=== PATIENT | male | born 1975 | race Caucasian/White ===

== ENCOUNTER 2016-09-30 01:10 | Emergency (ER) | payer OTHER ==
[2016-09-30 01:24] VITALS: BMI 27.0
--- NOTE | 2016-09-30 01:46 | DR.GENAD ---
HPI - PCP Primary Care Physician: dwight navas - Complaint/Symptoms Chief Complaint:: fell on right hip that he had surgery on cannot straighten nub out. right hip has a burning sensation patient has had plates and screws placed about 2 weeks ago Self Treatment fo Chief Complaint: tried to run warm water over it to see if that would help - Source History Provided: Patient - Mode of Arrival Mode of Arrival: Wheelchair - Timing Onset of Chief Complaint: 09/29/16 PMH - PMH Past Medical History: Yes Past Medical History: Anxiety, Depression, Diabetes, Headaches Past Medical History Comment: burger disease Past Surgical History: Yes Surgical History: Ortho Surgery Past Surgical History Comment: right hip surgery,left bka, right hand surgery, left thigh surgery - Family History History of Family Medical Conditions: Yes Family Medical History: Diabetes Mellitus, [place], Heart Failure, Hypertension - Social History Does patient currently use any type of tobacco product: Yes Have you used tobacco products in the last 12 months: Yes Type of Tobacco Use: Cigarettes Does any household member use tobacco: Yes Alcohol Use: None Do you use any recreational Drugs:: No Lives With: Spouse Lives Where: Home - infectious screening In the last 2 months have you had wt loss of >10#?: YES Have you had fever, night sweats or hemotysis?: No Have you traveled outside the country in the last 6 months?: No Isolation: Standard ROS - Review of Systems Constitutional: No Symptoms Reported Eyes: No Symptoms Reported ENTM: No Symptoms Reported Respiratoy: No Symptoms Reported Cardiovascular: No Symptoms Reported Gastrointestinal/Abdominal: No Symptoms Reported Genitourinary: No Symptoms Reported Neurological: No Symptoms Reported Musculoskeletal: No Symptoms Reported Integumentary: See HPI Hematologic/Lymphatic: No Symptoms Reported Endocrine: No Symptoms Reported Psychiatric: No Symptoms Reported All Other Systems: Reviewed and Negative PE - Vital Signs Vitals: Temperature 98.5 F Pulse Rate 90 Respiratory Rate 24 Blood Pressure [Right Arm] 133/65 Blood Pressure 139/76 O2 Sat by Pulse Oximetry 98 - General Limitations: No Limitations General Appearance: Alert, In No Apparent Distress - Head Head Exam: Normal Inspection, Atraumatic - Eyes Eye exam: Normal Appearance, PERRL, EOMI - ENT ENT Exam: Normal Exam External Ear Exam: Normal External Inspection TM/Canal Exam: Bilateral Normal Nose Exam: Normal Nose Exam Mouth Exam: Normal Inspection Throat Exam: Normal Inspection - Neck Neck Exam: Normal Inspection, Full ROM - Chest Chest Inspection: Normal Inspection - Respiratory Respiratory Exam: Normal Lung Sounds Bilat Respiratory Exam: Bilateral Clear to Auscultation - Cardiovascular Cardiovascular Exam: Regular Rate, Normal Rhythm - Abdominal Exam Abdominal Exam: Normal Inspection, Normal Bowel Sounds Abdominal Tenderness: negative: RUQ, RLQ, LUQ, LLQ, Epigastrium, Suprapubic, Diffuse, Mild, Moderate, Severe, Other - Extremities Extremities Exam: Normal Inspection - Back Back Exam: Normal Inspection - Neurologic Neurological Exam: Alert, Oriented X3, CN II-XII Intact - Psychiatric Psychiatric Exam: Normal Affect, Agitated - Skin Skin Exam: Warm, Dry, Intact Course - Reevaluation 1st: Improved ROR - XRAY XRAY Interpreted by: Radiologist (There is an internally fixed intertrochanteric fracture of the right femur. No acute fracture or dislocation identified. Moderate degenerative changes are seen in botgh hips. The bones of the pelvis are intact. Impression:There is an intertrochanteric fracture of the right femur tghat was visualized on September and has since been internally fixed. No acute abnormality.) - Diagnosis Discharge Problem: Contusion of hip, right Qualifiers: Encounter type: initial encounter Qualified Code(s): S70.01XA - Contusion of right hip, initial encounter - Discharge Plan Condition: Stable - Follow ups/Referrals Follow ups/Referrals: LEAH NAVAS [Primary Care Provider] - 3 days - Instructions
[2016-09-30] MEDS ORDERED: DEMEROL INJ IM ONE (01:47)
[2016-09-30] MEDS ORDERED: DEMEROL INJ ONE (02:13)
--- NOTE | 2016-09-30 02:35 | RAD ---
EXAM: Right hip x-ray INDICATION: Hip Pain COMPARISION: No priors for comparison TECHNIQUE: Two views FINDINGS: There is an internally fixed intertrochanteric fracture of the right femur. No acute fracture or dis location identified. Moderate degenerative changes are seen in both hips. The bones of the pelvis ar e intact. IMPRESSION: There is an intertrochanteric fracture of the right femur that was visualized on September 07, 2016 and h as since been internally fixed. No acute abnormality. Reported By:
[2016-09-30 04:35] VITALS: BP 113/61
== END 2016-09-30 04:30 | disposition home or self-care (01) ==
LOC: ER 01:10
DX: S70.01XA Contusion of right hip, initial encounter (principal); W19.XXXA Unspecified fall, initial encounter; Y92.9 Unspecified place or not applicable
CPT/HCPCS: 73501; 96372; 99282; J2175

== ENCOUNTER 2017-05-18 23:37 | Emergency (ER) | payer OTHER ==
[2017-05-18 23:50] VITALS: BP 146/94; BMI 29.2
[2017-05-19] MEDS ORDERED: KEFLEX CAP 500 MG PO ONE ×2 (00:50→01:00)
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
== END 2017-05-19 01:20 | disposition home or self-care (01) ==
LOC: ER 23:43
DX: S70.01XA Contusion of right hip, initial encounter (principal); S70.11XA Contusion of right thigh, initial encounter; L03.115 Cellulitis of right lower limb; W19.XXXA Unspecified fall, initial encounter; Y92.9 Unspecified place or not applicable
CPT/HCPCS: 99282

== ENCOUNTER 2017-10-07 13:36 | Emergency (ER) | payer OTHER ==
[2017-10-07 13:44] VITALS: BMI 31.8
--- NOTE | 2017-10-07 14:06 | DR.GENAD ---
HPI - PCP Primary Care Physician: SUSHILA SNOW - HPI Comment HPI Comment: COMPOUNDED MED TRIPLEMIX FOR ERECTION WAS USE LESS THAN 0.2MG 4 DAYS AGO. PATIENT HAVE SEXUAL DYSFUNCTION. ERECTION IS NOT GOING AWAY. IT IS PAINFULL. - Complaint/Symptoms Chief Complaint Doctors Comments: PRIAPISM Chief Complaint:: PT C/O HAVING AN IRRECTIONS THAT LASTED LONGER THAN 4 DAYS PT C/O INJECTING TRIPLE MIX, ,,BR - Nurses notes reviewed Nurses Notes Review: Yes - Source History Provided: Patient - Mode of Arrival Mode of Arrival: Ambulatory - Timing Onset of Chief Complaint: 10/03/17 Came on: Suddenly - Duration Duration: Constant Duration: Days - Severity Severity: Moderate PMH - PMH Past Medical History: No Past Medical History: Anxiety, COPD, Diabetes Past Surgical History: Yes Surgical History: Ortho Surgery Past Surgical History Comment: BKA, RIGHT, RIGHT HIP WITH RODS AND PINS,, BR - Family History History of Family Medical Conditions: No Family Medical History: Diabetes Mellitus, Hypertension - Social History Does patient currently use any type of tobacco product: No Have you used tobacco products in the last 12 months: No Type of Tobacco Use: None Does any household member use tobacco: No Alcohol Use: None Do you use any recreational Drugs:: No Lives With: Family Lives Where: Home - infectious screening In the last 2 months have you had wt loss of >10#?: NO Have you had fever, night sweats or hemotysis?: No Have you traveled outside the country in the last 6 months?: No Isolation: Standard ROS - Review of Systems Constitutional: No Symptoms Reported Eyes: No Symptoms Reported ENTM: No Symptoms Reported Respiratoy: No Symptoms Reported Cardiovascular: No Symptoms Reported Gastrointestinal/Abdominal: No Symptoms Reported Genitourinary: Other (PRIAPISM) Neurological: No Symptoms Reported Musculoskeletal: No Symptoms Reported Integumentary: No Symptoms Reported Hematologic/Lymphatic: No Symptoms Reported Endocrine: No Symptoms Reported All Other Systems: Reviewed and Negative PE - Vital Signs Vitals: Temperature 98.0 F Pulse Rate [Right Brachial] 96 Pulse Rate 105 Respiratory Rate 20 Blood Pressure [Left Arm] 113/61 Blood Pressure [Right Arm] 136/74 Blood Pressure 154/86 O2 Sat by Pulse Oximetry 99 - General Limitations: No Limitations General Appearance: Alert - Head Head Exam: Normal Inspection - Eyes Eye exam: Normal Appearance - ENT ENT Exam: Normal External Ear Exam External Ear Exam: Normal External Inspection TM/Canal Exam: Bilateral Normal Nose Exam: Normal Nose Exam Mouth Exam: Normal Inspection Throat Exam: Normal Inspection - Neck Neck Exam: Normal Inspection - Chest Chest Inspection: Symmetric Chest Wall Rise - Respiratory Respiratory Exam: Normal Lung Sounds Bilat Respiratory Exam: Bilateral Clear to Auscultation - Cardiovascular Cardiovascular Exam: Regular Rate, Normal Rhythm, Normal Heart Sounds - Abdominal Exam Abdominal Exam: Normal Bowel Sounds, Soft. negative: Tenderness - Extremities Extremities Exam: Other (RBKA. ) - Psychiatric Psychiatric Exam: Anxious - Skin Skin Exam: Normal Color MDM - Differential Diagnosis Differential Diagnosis: PRIAPISM Course - Treatment Treatment: SEE ORDERS. - Education/Counseling Education/Counseling: Patient, Education Educated On: Diagnosis, Needs for Follow Up ROR - Labs Reviewed Laboratory Results Reviewed?: Yes Result Diagrams: 10/07/17 14:36 10/07/17 14:36 Laboratory: WBC 12.5 X10^3/uL (3.6-10.0) H 10/07/17 14:36 RBC 4.81 X10^6/uL (4.7-6.0) 10/07/17 14:36 Hgb 14.9 g/dL (13.5-18.0) 10/07/17 14:36 Hct 41.8 % (42.0-54.0) L 10/07/17 14:36 MCV 86.8 fL (80.0-100.0) 10/07/17 14:36 MCH 30.9 pg (27.0-34.0) 10/07/17 14:36 MCHC 35.6 g/dL (33.0-35.0) H 10/07/17 14:36 RDW 14.1 % (11.6-16.5) 10/07/17 14:36 Plt Count 401 X10^3/uL (150.0-450.0) 10/07/17 14:36 MPV 7.6 fL (7.4-11.0) 10/07/17 14:36 Neut % (Auto) 75.9 % (42.0-75.0) H 10/07/17 14:36 Lymph % (Auto) 14.0 % (21.0-51.0) L 10/07/17 14:36 Bollinger % (Auto) 6.3 % (0.0-13.0) 10/07/17 14:36 Eos % (Auto) 3.1 % (0.9-2.9) H 10/07/17 14:36 Baso % (Auto) 0.7 % (0.2-1.0) 10/07/17 14:36 Neut # (Auto) 9.5 x10^3/uL (2.2-4.8) H 10/07/17 14:36 Lymph # (Auto) 1.7 X10^3/uL (1.3-2.9) 10/07/17 14:36 Bollinger # (Auto) 0.8 x10^3/uL (0.3-0.8) 10/07/17 14:36 Eos # (Auto) 0.4 x10^3/uL (0.0-0.2) H 10/07/17 14:36 Baso # (Auto) 0.1 X10^3/uL (0.0-0.1) 10/07/17 14:36 Absolute Nucleated RBC 0.0 /100WBC 10/07/17 14:36 Sodium 138 mmol/L (136-145) 10/07/17 14:36 Corrected Sodium 143 mmol/L (136-145) 10/07/17 14:36 Potassium 3.7 mmol/L (3.5-5.1) 10/07/17 14:36 Chloride 103 mmol/L (98-107) 10/07/17 14:36 Carbon Dioxide 27.3 mmol/L (21-32) 10/07/17 14:36 BUN 13 mg/dL (7-18) 10/07/17 14:36 Creatinine 0.85 mg/dL (0.70-1.30) 10/07/17 14:36 Est GFR (MDRD) Af Amer > 60 (>60) 10/07/17 14:36 Est GFR (MDRD) Non-Af > 60 (>60) 10/07/17 14:36 Glucose 303 mg/dL (65-99) H 10/07/17 14:36 Calcium 8.3 mg/dL (8.5-10.1) L 10/07/17 14:36 Corrected Calcium TNP 10/07/17 14:36 Total Bilirubin 0.60 mg/dL (0.2-1.0) 10/07/17 14:36 AST 11 Units/L (15-37) L 10/07/17 14:36 ALT 31 Units/L (12-78) 10/07/17 14:36 Alkaline Phosphatase 76 Units/L (46-116) 10/07/17 14:36 Total Protein 7.5 g/dL (6.4-8.2) 10/07/17 14:36 Albumin 4.1 g/dL (3.4-5.0) 10/07/17 14:36 Globulin 3.4 g/dL (2.5-4.5) 10/07/17 14:36 Albumin/Globulin Ratio 1.2 Ratio (1.1-2.1) 10/07/17 14:36 - XRAY XRAY Findings: DISCUSS PATIENT WITH DR. CARDENAS, UROLOGIST FROM [facility]. HE ACCEPTED - Diagnosis Discharge Problem: Priapism - Discharge Plan Disposition: [facility] Condition: Stable - Follow ups/Referrals Follow ups/Referrals: NFD,None [Primary Care Provider] - 3 days - Instructions
[2017-10-07] MEDS ORDERED: ZOFRAN INJ 4 MG VIAL IVP ONE (14:20)
[2017-10-07] MEDS ORDERED: DEMEROL INJ IVP ONE ×2 (14:20→16:20)
[2017-10-07] MEDS ORDERED: NS 1000 ML 1,000 ML ONE ×2 (14:39→16:06)
[2017-10-07] MEDS ORDERED: ZOFRAN INJ 4 MG VIAL ONE (14:39)
[2017-10-07] MEDS ORDERED: DEMEROL INJ ONE ×2 (14:40→16:04)
[2017-10-07 14:43] LABS: BASOPHILS # (AUTO) 0.1 X10^3/uL (0.0-0.1); BASOPHILS % (AUTO) 0.7 % (0.2-1.0); EOSINOPHILS # (AUTO) 0.4 x10^3/uL (0.0-0.2); EOSINOPHILS % (AUTO) 3.1 % (0.9-2.9); HEMATOCRIT 41.8 % (42.0-54.0); HEMOGLOBIN 14.9 g/dL (13.5-18.0); LYMPHOCYTES # (AUTO) 1.7 X10^3/uL (1.3-2.9); MEAN CORPUSCULAR HEMOGLOBIN 30.9 pg (27.0-34.0); MEAN CORPUSCULAR HGB CONC 35.6 g/dL (33.0-35.0); MEAN CORPUSCULAR VOLUME 86.8 fL (80.0-100.0); MEAN PLATELET VOLUME 7.6 fL (7.4-11.0); MONOCYTES # (AUTO) 0.8 x10^3/uL (0.3-0.8); MONOCYTES % (AUTO) 6.3 % (0.0-13.0); NEUTROPHILS # (AUTO) 9.5 x10^3/uL (2.2-4.8); NEUTROPHILS % (AUTO) 75.9 % (42.0-75.0); PLATELET COUNT 401 X10^3/uL (150.0-450.0); RED BLOOD COUNT 4.81 X10^6/uL (4.7-6.0); RED CELL DISTRIBUTION WIDTH 14.1 % (11.6-16.5); WHITE BLOOD COUNT 12.5 X10^3/uL (3.6-10.0)
[2017-10-07] MEDS: NS 1000 ML 1,000 ML IV ONE ×2 (14:51→16:09)
[2017-10-07 14:57] LABS: ALANINE AMINOTRANSFERASE 31 Units/L (12-78); ALBUMIN 4.1 g/dL (3.4-5.0); ALKALINE PHOSPHATASE 76 Units/L (46-116); ASPARTATE AMINO TRANSFERASE 11 Units/L (15-37); BLOOD UREA NITROGEN 13 mg/dL (7-18); CALCIUM 8.3 mg/dL (8.5-10.1); CARBON DIOXIDE 27.3 mmol/L (21-32); CHLORIDE 103 mmol/L (98-107); COR NA(FOR HYPERGLY) 143 mmol/L (136-145); CREATININE 0.85 mg/dL (0.70-1.30); SODIUM 138 mmol/L (136-145); TOTAL PROTEIN 7.5 g/dL (6.4-8.2); eGFR BLACK RACES > 60 (>60); eGFR NON BLACK RACES > 60 (>60)
[2017-10-07] MEDS ORDERED: MORPHINE SULFATE INJ 2 MG INJ IVP ONE (16:19)
[2017-10-07 16:22] VITALS: BP 136/74
[2017-10-07] MEDS ORDERED: NS 1000 ML 1,000 ML IV SCH (17:00)
== END 2017-10-07 16:11 | disposition short-term general hospital (02) ==
LOC: ER 13:47
DX: N48.30 Priapism, unspecified (principal)
CPT/HCPCS: 36415; 80053; 85025; 96367; 96374; 96375; 99282; 99284; 99285; A4222; J2175; J2405